=== PATIENT | male | born 1945 | race Caucasian/White ===

== ENCOUNTER 2020-08-13 17:45 | Inpatient (IN) | payer MEDICARE ==
[~2020-08-13] VITALS: Ht 170.2 cm; Wt 64.6 kg
[2020-08-14 00:25] VITALS: BP 137/80
[2020-08-14] MEDS ORDERED: METF500T27 PO (00:59)
[2020-08-14] MEDS ORDERED: LISI40TA9 PO (00:59)
[2020-08-14] MEDS ORDERED: LEVO75TA PO (00:59)
[2020-08-14] MEDS ORDERED: ATOR20TA86 PO (00:59)
[2020-08-14] MEDS ORDERED: CARV25TA PO (00:59)
[2020-08-14] MEDS ORDERED: ONDANSETRON 2MG/ML, 2ML IVPush PRN (01:00)
[2020-08-14] MEDS ORDERED: LABETALOL 5MG/ML, 20ML IVPush PRN (01:00)
[2020-08-14] MEDS ORDERED: PLEASE ENTER HEIGHT MC SCH (01:00)
[2020-08-14] MEDS ORDERED: hydrALAzine 20 MG/ML, 1ML IVPush PRN (01:00)
[2020-08-14] MEDS ORDERED: BISACODYL 10 MG SUPP PR PRN (01:00)
[2020-08-14] MEDS ORDERED: ONDANSETRON ODT 4 MG PO PRN (01:00)
[2020-08-14] MEDS ORDERED: SODIUM CHLORIDE 0.9% 1,000 ML IV SCH (01:00)
[2020-08-14] MEDS ORDERED: PROMETHAZINE 25 MG/ML, 1ML IM PRN (01:00)
[2020-08-14] MEDS ORDERED: NICO-587 TD (02:10)
[2020-08-14] MEDS ORDERED: ASPI325T17 PO (02:10)
[2020-08-14] MEDS ORDERED: albuterol INH (02:10)
[2020-08-14] MEDS ORDERED: SODIUM CHLORIDE INHALATION 7%, 4 ML NPPB PRN (03:30)
[2020-08-14] MEDS ORDERED: ALBUTEROL SULFATE 2.5 MG/3 ML NPPB PRN (03:30)
[2020-08-14 03:32] VITALS: BP 120/73
[2020-08-14] MEDS: morphine SULFATE 10 MG/ML, 1ML IVPush PRN ×4 (03:35→21:55)
[2020-08-14] MEDS: ACETAMINOPHEN 325 MG TABLET PO PRN ×2 (03:35→21:54)
[2020-08-14] MEDS: PIPERACILLIN/TAZO 3.375 GM in DEXTROSE 5% 50 ML IV SCH ×4 (03:35→21:54)
[2020-08-14] MEDS: LINEZOLID PMX 600MG/300ML 300 ML IV SCH ×2 (04:33→16:43)
[2020-08-14 05:47] LABS: ALBUMIN 2.2 g/dL (3.4-5.0); ANION GAP 9 mmol/L (5-15); CALCIUM 7.8 mg/dL (8.5-10.1); CHLORIDE 109 mmol/L (98-107)
[2020-08-14 05:55] LABS: MEAN CORPUSCULAR HEMOGLOBIN 27.5 pg (27.5-34.5); MEAN PLATELET VOLUME 7.8 fL (7.4-10.4); PLATELET COUNT 379 x10^3/uL (130-400); RED BLOOD COUNT 3.25 x10^6/uL (4.38-5.82); RED CELL DISTRIBUTION WIDTH 15.9 % (9.4-14.8)
[2020-08-14 05:57] LABS: ALANINE AMINOTRANSFERASE 9 U/L (12-78); ALKALINE PHOSPHATASE 131 U/L (45-117); BILIRUBIN,TOTAL 0.4 mg/dL (0.2-1.0); CHOL/HDL RATIO 3.5; CHOLESTEROL, TOTAL 91 mg/dL (140-239); HDL CHOL % 29 % (26-37); HDL CHOLESTEROL (DIRECT) 26 mg/dL (40-60); LDL CHOLESTEROL,CALCULATED 35 mg/dL (54-169); LDL/HDL RATIO 1.3 (0.5-3.0); TOTAL PROTEIN 5.3 g/dL (6.4-8.2); TRIGLYCERIDES 149 mg/dL (50-200); VLDL CHOLESTEROL 30 mg/dL (0-25)
[2020-08-14 06:21] LABS: EOS#(MANUAL) 2.53 x10^3/uL (0.0-0.4); EOS% (MANUAL) 16 % (1-7); LYMPH#(MANUAL) 0.95 x10^3/uL (1-3.4); LYMPHS% (MANUAL) 6 % (22-44); MD YES; MONOS#(MANUAL) 0.79 x10^3/uL (0.3-2.7); MONOS% (MANUAL) 5 % (2-9); SEG#(MANUAL) 11.53 x10^3/uL (1.8-6.8); SEGS% (MANUAL) 73 % (42-75)
[2020-08-14 06:22] LABS: <PLATELET ESTIMATE> ADEQUATE; <PLT MORPHOLOGY> NORMAL PLT MORPH; ANISOCYTOSIS 1+
[2020-08-14 06:35] VITALS: BP 135/79
[2020-08-14] MEDS: OXYcodone IR 5MG TABLET PO PRN ×2 (06:36→15:51)
[2020-08-14] MEDS: LEVOTHYROXINE 75 MCG TABLET PO SCH (06:36)
[2020-08-14] MEDS: INSULIN LISPRO 100 UNITS/ML, PEN SQ-INSULIN SCH ×4 (07:00→21:31)
[2020-08-14] MEDS: CARVEDILOL 25 MG TABLET PO SCH ×2 (08:51→21:54)
[2020-08-14] MEDS: LISINOPRIL 40 MG TABLET PO SCH (08:51)
[2020-08-14] MEDS: NICOTINE 21 MG/24 HR PATCH.TD24 TD SCH (08:53)
[2020-08-14] MEDS ORDERED: ALBUTEROL SULFATE 2.5 MG/3 ML NPPB SCH (09:00)
[2020-08-14] MEDS ORDERED: FLUTICASONE/VILANTEROL 200-25MCG/INH INH SCH (09:00)
[2020-08-14] MEDS ORDERED: BUDESONIDE 0.5 MG/2 ML INHA NPPB SCH (09:00)
[2020-08-14 13:54] VITALS: BP 127/73
[2020-08-14 20:57] VITALS: BP 124/80
[2020-08-14 21:54] VITALS: BP 132/77
[2020-08-14] MEDS: ATORVASTATIN 20 MG TABLET PO SCH (21:54)
[2020-08-14] MEDS: POLYETHYLENE GLYCOL 17 GM PACKET PO PRN (22:18)
[2020-08-15 01:57] VITALS: BP 114/68
[2020-08-15] MEDS: ACETAMINOPHEN 325 MG TABLET PO PRN ×2 (01:59→21:32)
[2020-08-15] MEDS: morphine SULFATE 10 MG/ML, 1ML IVPush PRN ×5 (01:59→21:33)
[2020-08-15 03:56] VITALS: BP 111/70
[2020-08-15] MEDS: OXYcodone IR 5MG TABLET PO PRN ×2 (03:56→14:23)
[2020-08-15] MEDS: PIPERACILLIN/TAZO 3.375 GM in DEXTROSE 5% 50 ML IV SCH ×4 (03:56→21:32)
[2020-08-15 04:50] LABS: MEAN CORPUSCULAR HEMOGLOBIN 27.7 pg (27.5-34.5); MEAN CORPUSCULAR HGB CONC 32.8 g/dL (33.2-36.2); MEAN PLATELET VOLUME 7.5 fL (7.4-10.4); PLATELET COUNT 369 x10^3/uL (130-400); RED BLOOD COUNT 3.23 x10^6/uL (4.38-5.82); RED CELL DISTRIBUTION WIDTH 15.6 % (9.4-14.8)
[2020-08-15] MEDS: LINEZOLID PMX 600MG/300ML 300 ML IV SCH ×2 (04:53→16:36)
[2020-08-15] MEDS: LEVOTHYROXINE 75 MCG TABLET PO SCH (04:53)
[2020-08-15 05:05] LABS: ANION GAP 7 mmol/L (5-15); CHLORIDE 106 mmol/L (98-107)
[2020-08-15 05:06] LABS: CREATININE 0.65 mg/dL (0.7-1.3)
[2020-08-15 05:34] LABS: MD YES
[2020-08-15 05:42] LABS: BAND#(MANUAL) 0.15 x10^3/uL; BANDS%(MANUAL) 1 % (0-7); BASOS#(MANUAL) 0.45 x10^3/uL (0-0.1); BASOS% (MANUAL) 3 % (0-1); EOS% (MANUAL) 12 % (1-7); LYMPHS% (MANUAL) 8 % (22-44); MONOS#(MANUAL) 1.05 x10^3/uL (0.3-2.7); MONOS% (MANUAL) 7 % (2-9); SEG#(MANUAL) 10.35 x10^3/uL (1.8-6.8); SEGS% (MANUAL) 69 % (42-75)
[2020-08-15 05:43] LABS: ANISOCYTOSIS 1+
[2020-08-15 05:44] LABS: MICROCYTOSIS 1+; OVALOCYTES 1+
[2020-08-15 05:45] LABS: <PLATELET ESTIMATE> ADEQUATE; LARGE PLATELETS 1+; POLYCHROMASIA 1+
[2020-08-15 06:19] VITALS: BP 114/73
[2020-08-15] MEDS: INSULIN LISPRO 100 UNITS/ML, PEN SQ-INSULIN SCH ×4 (06:21→21:26)
[2020-08-15] MEDS: LISINOPRIL 40 MG TABLET PO SCH (08:07)
[2020-08-15] MEDS: CARVEDILOL 25 MG TABLET PO SCH ×2 (08:07→21:32)
[2020-08-15] MEDS: NICOTINE 21 MG/24 HR PATCH.TD24 TD SCH (08:08)
[2020-08-15] MEDS: ENOXAPARIN 40 MG/0.4 ML SQ SCH (09:04)
[2020-08-15 14:10] VITALS: BP 116/72
[2020-08-15 19:04] VITALS: BP 138/82
[2020-08-15 21:31] VITALS: BP 147/88
[2020-08-15] MEDS: ATORVASTATIN 20 MG TABLET PO SCH (21:32)
[2020-08-15] MEDS: POLYETHYLENE GLYCOL 17 GM PACKET PO PRN (21:32)
[2020-08-16 02:17] VITALS: BP 136/81
[2020-08-16] MEDS: morphine SULFATE 10 MG/ML, 1ML IVPush PRN ×4 (02:18→18:08)
[2020-08-16] MEDS: PIPERACILLIN/TAZO 3.375 GM in DEXTROSE 5% 50 ML IV SCH ×4 (03:43→20:55)
[2020-08-16 04:59] VITALS: BP 123/75
[2020-08-16] MEDS: LEVOTHYROXINE 75 MCG TABLET PO SCH (05:00)
[2020-08-16] MEDS: OXYcodone IR 5MG TABLET PO PRN ×5 (05:00→20:55)
[2020-08-16] MEDS: LINEZOLID PMX 600MG/300ML 300 ML IV SCH (05:00)
[2020-08-16 06:29] VITALS: BP 123/76
[2020-08-16] MEDS: INSULIN LISPRO 100 UNITS/ML, PEN SQ-INSULIN SCH ×4 (07:00→20:22)
[2020-08-16 08:00] VITALS: BP 124/75
[2020-08-16] MEDS: ENOXAPARIN 40 MG/0.4 ML SQ SCH (08:42)
[2020-08-16] MEDS: LISINOPRIL 40 MG TABLET PO SCH (08:47)
[2020-08-16] MEDS: CARVEDILOL 25 MG TABLET PO SCH ×2 (08:47→20:55)
[2020-08-16] MEDS: NICOTINE 21 MG/24 HR PATCH.TD24 TD SCH ×2 (08:47→20:55)
[2020-08-16] MEDS: POLYETHYLENE GLYCOL 17 GM PACKET PO PRN (12:46)
[2020-08-16 13:50] VITALS: BP 116/72
[2020-08-16 19:28] VITALS: BP 149/91
[2020-08-16] MEDS: ATORVASTATIN 20 MG TABLET PO SCH (20:54)
[2020-08-17] VITALS (8 sets, daily range): BP systolic 121–172; BP diastolic 68–93
[2020-08-17] MEDS: OXYcodone IR 5MG TABLET PO PRN ×4 (02:21→20:46)
[2020-08-17] MEDS: PIPERACILLIN/TAZO 3.375 GM in DEXTROSE 5% 50 ML IV SCH ×4 (02:22→20:47)
[2020-08-17] MEDS: morphine SULFATE 10 MG/ML, 1ML IVPush PRN ×3 (04:48→22:32)
[2020-08-17] MEDS: LEVOTHYROXINE 75 MCG TABLET PO SCH (04:48)
[2020-08-17] MEDS: POLYETHYLENE GLYCOL 17 GM PACKET PO PRN (04:55)
[2020-08-17 04:57] LABS: BASOPHILS % (AUTO) 1 % (0-1); EOSINOPHILS % (AUTO) 9 % (1-7); LYMPHOCYTES % (AUTO) 7 % (22-44); MEAN CORPUSCULAR HEMOGLOBIN 27.2 pg (27.5-34.5); MEAN CORPUSCULAR HGB CONC 32.4 g/dL (33.2-36.2); MEAN PLATELET VOLUME 7.4 fL (7.4-10.4); MONOCYTES % (AUTO) 9 % (2-9); NEUTROPHILS % (AUTO) 73 % (42-75); PLATELET COUNT 387 x10^3/uL (130-400); RED BLOOD COUNT 3.28 x10^6/uL (4.38-5.82)
[2020-08-17 04:59] LABS: MD NO
[2020-08-17 05:02] LABS: CALCIUM 8.2 mg/dL (8.5-10.1); CHLORIDE 105 mmol/L (98-107)
[2020-08-17 05:06] LABS: ANION GAP 4 mmol/L (5-15); CREATININE 0.68 mg/dL (0.7-1.3)
[2020-08-17] MEDS: INSULIN LISPRO 100 UNITS/ML, PEN SQ-INSULIN SCH (07:00)
[2020-08-17] MEDS: DOCUSATE 100 MG CAPSULE PO PRN ×2 (08:44→16:36)
[2020-08-17] MEDS: CARVEDILOL 25 MG TABLET PO SCH ×2 (08:45→20:47)
[2020-08-17] MEDS: ENOXAPARIN 40 MG/0.4 ML SQ SCH (08:45)
[2020-08-17] MEDS: LISINOPRIL 40 MG TABLET PO SCH (08:45)
[2020-08-17] MEDS: ATORVASTATIN 20 MG TABLET PO SCH (20:46)
[2020-08-17] MEDS: NICOTINE 21 MG/24 HR PATCH.TD24 TD SCH (22:37)
[2020-08-18 00:27] VITALS: BP 129/70
[2020-08-18] MEDS: OXYcodone IR 5MG TABLET PO PRN ×5 (01:36→20:47)
[2020-08-18] MEDS: PIPERACILLIN/TAZO 3.375 GM in DEXTROSE 5% 50 ML IV SCH ×2 (02:35→08:39)
[2020-08-18] MEDS: morphine SULFATE 10 MG/ML, 1ML IVPush PRN ×5 (04:01→23:40)
[2020-08-18] MEDS: LEVOTHYROXINE 75 MCG TABLET PO SCH (05:17)
[2020-08-18 05:42] LABS: BASOPHILS % (AUTO) 2 % (0-1); EOSINOPHILS % (AUTO) 9 % (1-7); LYMPHOCYTES % (AUTO) 7 % (22-44); MEAN CORPUSCULAR HEMOGLOBIN 27.5 pg (27.5-34.5); MEAN CORPUSCULAR HGB CONC 32.8 g/dL (33.2-36.2); MEAN PLATELET VOLUME 7.4 fL (7.4-10.4); MONOCYTES % (AUTO) 9 % (2-9); NEUTROPHILS % (AUTO) 73 % (42-75); PLATELET COUNT 374 x10^3/uL (130-400); RED BLOOD COUNT 3.21 x10^6/uL (4.38-5.82)
[2020-08-18 05:44] LABS: MD NO
[2020-08-18 05:55] LABS: ANION GAP 6 mmol/L (5-15); CALCIUM 8.4 mg/dL (8.5-10.1); CHLORIDE 105 mmol/L (98-107)
[2020-08-18 05:57] LABS: CREATININE 0.61 mg/dL (0.7-1.3)
[2020-08-18 07:10] VITALS: BP 154/89
[2020-08-18] MEDS: LISINOPRIL 40 MG TABLET PO SCH (08:39)
[2020-08-18] MEDS: CARVEDILOL 25 MG TABLET PO SCH ×2 (08:40→20:46)
[2020-08-18] MEDS: ENOXAPARIN 40 MG/0.4 ML SQ SCH (08:52)
[2020-08-18] MEDS: AMOXICILLIN/CLAV 875-125MG TABLET PO SCH ×2 (09:26→20:45)
[2020-08-18 12:19] VITALS: BP 126/81
[2020-08-18 19:34] VITALS: BP 157/83
[2020-08-18] MEDS: ATORVASTATIN 20 MG TABLET PO SCH (20:46)
[2020-08-18] MEDS: NICOTINE 21 MG/24 HR PATCH.TD24 TD SCH (23:40)
[2020-08-19 00:09] VITALS: BP 140/82
[2020-08-19] MEDS: OXYcodone IR 5MG TABLET PO PRN ×5 (01:26→20:23)
[2020-08-19] MEDS: LEVOTHYROXINE 75 MCG TABLET PO SCH (04:43)
[2020-08-19] MEDS: morphine SULFATE 10 MG/ML, 1ML IVPush PRN ×5 (04:43→22:37)
[2020-08-19 05:25] LABS: BASOPHILS % (AUTO) 1 % (0-1); EOSINOPHILS % (AUTO) 6 % (1-7); LYMPHOCYTES % (AUTO) 5 % (22-44); MEAN CORPUSCULAR HGB CONC 32.5 g/dL (33.2-36.2); MEAN PLATELET VOLUME 7.5 fL (7.4-10.4); MONOCYTES % (AUTO) 9 % (2-9); NEUTROPHILS % (AUTO) 80 % (42-75); PLATELET COUNT 365 x10^3/uL (130-400); RED BLOOD COUNT 3.46 x10^6/uL (4.38-5.82); RED CELL DISTRIBUTION WIDTH 15.9 % (9.4-14.8)
[2020-08-19 05:33] LABS: ANION GAP 7 mmol/L (5-15); CALCIUM 8.7 mg/dL (8.5-10.1); CHLORIDE 105 mmol/L (98-107)
[2020-08-19 05:36] LABS: CREATININE 0.53 mg/dL (0.7-1.3)
[2020-08-19 06:47] LABS: MD SCAN
[2020-08-19 07:02] VITALS: BP 131/83
[2020-08-19] MEDS: ENOXAPARIN 40 MG/0.4 ML SQ SCH (09:24)
[2020-08-19] MEDS: AMOXICILLIN/CLAV 875-125MG TABLET PO SCH ×2 (09:25→21:34)
[2020-08-19] MEDS: LISINOPRIL 40 MG TABLET PO SCH (09:26)
[2020-08-19] MEDS: CARVEDILOL 25 MG TABLET PO SCH ×2 (09:26→20:23)
[2020-08-19 09:27] VITALS: BP 135/78
[2020-08-19 13:56] VITALS: BP 130/76
[2020-08-19 19:14] VITALS: BP 134/75
[2020-08-19] MEDS: ATORVASTATIN 20 MG TABLET PO SCH (20:23)
[2020-08-20] MEDS: OXYcodone IR 5MG TABLET PO PRN ×5 (00:24→21:23)
[2020-08-20] MEDS: NICOTINE 21 MG/24 HR PATCH.TD24 TD SCH ×2 (00:24→09:39)
[2020-08-20 01:32] VITALS: BP 127/72
[2020-08-20] MEDS: morphine SULFATE 10 MG/ML, 1ML IVPush PRN ×5 (02:19→20:08)
[2020-08-20 05:11] LABS: BASOPHILS % (AUTO) 1 % (0-1); EOSINOPHILS % (AUTO) 11 % (1-7); LYMPHOCYTES % (AUTO) 6 % (22-44); MEAN CORPUSCULAR HEMOGLOBIN 27.6 pg (27.5-34.5); MEAN CORPUSCULAR HGB CONC 33.1 g/dL (33.2-36.2); MEAN PLATELET VOLUME 7.3 fL (7.4-10.4); MONOCYTES % (AUTO) 12 % (2-9); NEUTROPHILS % (AUTO) 71 % (42-75); PLATELET COUNT 344 x10^3/uL (130-400); RED BLOOD COUNT 3.28 x10^6/uL (4.38-5.82); RED CELL DISTRIBUTION WIDTH 15.6 % (9.4-14.8)
[2020-08-20 05:26] LABS: ALBUMIN 2.2 g/dL (3.4-5.0); ANION GAP 4 mmol/L (5-15); CALCIUM 8.5 mg/dL (8.5-10.1); CHLORIDE 104 mmol/L (98-107)
[2020-08-20 05:31] LABS: ALANINE AMINOTRANSFERASE 10 U/L (12-78); ALKALINE PHOSPHATASE 105 U/L (45-117); BILIRUBIN,TOTAL 0.4 mg/dL (0.2-1.0); CREATININE 0.54 mg/dL (0.7-1.3); PREALBUMIN 7.8 mg/dL (20.0-40.0); TOTAL PROTEIN 5.6 g/dL (6.4-8.2)
[2020-08-20 05:53] LABS: MD SCAN
[2020-08-20] MEDS: LEVOTHYROXINE 75 MCG TABLET PO SCH (06:12)
[2020-08-20 06:48] VITALS: BP 130/77
[2020-08-20] MEDS: AMOXICILLIN/CLAV 875-125MG TABLET PO SCH ×2 (09:40→21:23)
[2020-08-20] MEDS: LISINOPRIL 40 MG TABLET PO SCH (09:40)
[2020-08-20] MEDS: ENOXAPARIN 40 MG/0.4 ML SQ SCH (09:41)
[2020-08-20] MEDS: CARVEDILOL 25 MG TABLET PO SCH ×2 (09:41→20:08)
[2020-08-20 14:13] VITALS: BP 131/79
[2020-08-20 19:16] VITALS: BP 137/71
[2020-08-20] MEDS: ATORVASTATIN 20 MG TABLET PO SCH (20:08)
[2020-08-21] MEDS: NICOTINE 21 MG/24 HR PATCH.TD24 TD SCH (00:08)
[2020-08-21] MEDS: morphine SULFATE 10 MG/ML, 1ML IVPush PRN ×6 (00:14→23:10)
[2020-08-21 01:29] VITALS: BP 130/67
[2020-08-21] MEDS: OXYcodone IR 5MG TABLET PO PRN ×5 (02:06→21:07)
[2020-08-21] MEDS: LEVOTHYROXINE 75 MCG TABLET PO SCH (05:05)
[2020-08-21 07:46] VITALS: BP 119/71
[2020-08-21] MEDS: LISINOPRIL 40 MG TABLET PO SCH (08:42)
[2020-08-21] MEDS: AMOXICILLIN/CLAV 875-125MG TABLET PO SCH (08:42)
[2020-08-21] MEDS: CARVEDILOL 25 MG TABLET PO SCH ×2 (08:42→20:36)
[2020-08-21] MEDS: ENOXAPARIN 40 MG/0.4 ML SQ SCH (08:43)
[2020-08-21] MEDS ORDERED: OMNIPAQUE 350 MG/ML, 100ML BOTTLE ONE (10:30)
[2020-08-21] MEDS ORDERED: GADOTERATE 7.5 MMOL/15ML SYR ONE (11:19)
[2020-08-21 12:58] VITALS: BP 113/70
[2020-08-21 18:56] VITALS: BP 124/77
[2020-08-21] MEDS: ATORVASTATIN 20 MG TABLET PO SCH (20:35)
[2020-08-22] MEDS: NICOTINE 21 MG/24 HR PATCH.TD24 TD SCH ×2 (00:02→09:00)
[2020-08-22 00:30] VITALS: BP 101/66
[2020-08-22] MEDS: OXYcodone IR 5MG TABLET PO PRN ×3 (03:02→13:08)
[2020-08-22] MEDS: morphine SULFATE 10 MG/ML, 1ML IVPush PRN ×2 (05:14→10:00)
[2020-08-22] MEDS: LEVOTHYROXINE 75 MCG TABLET PO SCH (05:14)
[2020-08-22 06:47] VITALS: BP 106/60
[2020-08-22] MEDS: CARVEDILOL 25 MG TABLET PO SCH (07:58)
[2020-08-22] MEDS: LISINOPRIL 40 MG TABLET PO SCH (07:58)
[2020-08-22] MEDS: ENOXAPARIN 40 MG/0.4 ML SQ SCH (07:58)
[2020-08-22] MEDS ORDERED: GUAI12009 PO (10:46)
[2020-08-22] MEDS ORDERED: OXYC5TAB98 PO (10:46)
[2020-08-22] MEDS ORDERED: AMOX1TAB64 PO (10:46)
[2020-08-22 14:32] VITALS: BP 135/76
== END 2020-08-22 17:38 | disposition home health service (06) | DRG 823 ==
LOC: 4WST 08-14 00:08
PROVIDERS: ADMIT Hospitalist; ATTEND Internal Medicine
PROC: 07B53ZX Excision of Right Axillary Lymphatic, Percutaneous Approach, Diagnostic (ICD-10-PCS; principal; 2020-08-16)
DX: C77.3 Secondary and unspecified malignant neoplasm of axilla and upper limb lymph nodes (principal); J69.0 Pneumonitis due to inhalation of food and vomit; J96.01 Acute respiratory failure with hypoxia; E43 Unspecified severe protein-calorie malnutrition; C34.11 Malignant neoplasm of upper lobe, right bronchus or lung; S22.39XA Fracture of one rib, unspecified side, initial encounter for closed fracture; R64 Cachexia; J44.0 Chronic obstructive pulmonary disease with (acute) lower respiratory infection; D63.8 Anemia in other chronic diseases classified elsewhere; I25.10 Atherosclerotic heart disease of native coronary artery without angina pectoris; I10 Essential (primary) hypertension; H54.7 Unspecified visual loss; F32.9 Major depressive disorder, single episode, unspecified; F17.210 Nicotine dependence, cigarettes, uncomplicated; E78.5 Hyperlipidemia, unspecified; Z20.822 Contact with and (suspected) exposure to COVID-19; E11.9 Type 2 diabetes mellitus without complications; E03.9 Hypothyroidism, unspecified; Z95.1 Presence of aortocoronary bypass graft; Z90.49 Acquired absence of other specified parts of digestive tract
CPT/HCPCS: 36415; 38505; 70553; 74177; 74230; 76942; 80048; 80053; 80061; 82962; 83036; 83735; 84100; 84134; 84443; 85025; 86480; 87015; 87040; 87070; 87075; 87102; 87116; 87205; 87206; 88305; 88333; 88341; 88342; G0378; J1650; J2020; J2543; Q9967; A9575; J1815; J2270; J7030; U0003